=== PATIENT | male | born 1995 ===

== ENCOUNTER 2022-07-17 09:00 | Outpatient (RCR) | payer OTHER | END 2022-07-20 | LOC: PT 09:00 | PROVIDERS: ATTEND Internal Medicine | DX: I61.9 Nontraumatic intracerebral hemorrhage, unspecified (principal); H54.3 Unqualified visual loss, both eyes ==

== ENCOUNTER 2022-08-09 11:00 | Outpatient (RCR) | payer OTHER | END 2022-08-20 | LOC: PT 11:00 | PROVIDERS: ATTEND Internal Medicine | DX: I61.9 Nontraumatic intracerebral hemorrhage, unspecified (principal); H54.3 Unqualified visual loss, both eyes | CPT/HCPCS: 92523 ==